=== PATIENT | male | born 2005 | race African-American/Black ===

== ENCOUNTER 2025-11-19 12:00 | Emergency (ER) | payer OTHER ==
[~2025-11-19] VITALS: Ht 172.7 cm; Wt 81.8 kg
[2025-11-19 12:02] VITALS: TEMP 98.8
[2025-11-19 12:33] LABS: PLATELET COUNT (AUTO) 418 K/uL (150-450); RED BLOOD CELL COUNT(AUTO) 4.95 MIL/uL (4.50-5.90); RED CELL DISTRIBUTION WIDTH 12.8 % (11.5-14.5); WHITE BLOOD COUNT (AUTO) 5.4 K/uL (4.5-11.0)
[2025-11-19 12:41] LABS: CALCIUM, TOTAL 8.9 mg/dL (8.8-10.5); CREATININE 1.07 mg/dL (0.60-1.30); GLOMERULAR FILTR. RATE CALC > 60 mL/min (>60); GLUCOSE,RANDOM 91 mg/dL (70-110); SODIUM SERUM 148 mmol/L (136-145); UREA NITROGEN, BLOOD 18 mg/dL (7-18)
[2025-11-19] MEDS: SODIUM CHLORIDE 0.9% 2,000 ML IV ONE (14:30)
[2025-11-19] MEDS: ONDANSETRON HCL 4 MG/2 ML VIAL IVP ONE (14:30)
[2025-11-19 14:31] LABS: COVID AG,FIA SOURCE NASAL SWAB
[2025-11-19 14:49] LABS: SARS-COV2 (COVID) ANTIGEN,FIA Negative (Negative)
[2025-11-19 14:50] LABS: INFLUENZA TYPE A NEGATIVE FOR TYPE A (NEGATIVE); INFLUENZA TYPE B NEGATIVE FOR TYPE B (NEGATIVE)
[2025-11-19 16:00] LABS: APPEARANCE,URINE CLEAR (CLEAR); GLUCOSE, URINE (UA) NEGATIVE (NEGATIVE); LEUKOCYTE ESTERASE ,URINE NEGATIVE (NEGATIVE); NITRATE,URINE NEGATIVE (NEGATIVE); OCCULT BLOOD,URINE NEGATIVE (NEGATIVE); SPECIFIC GRAVITIY, URINE 1.026 (1.003-1.030)
[2025-11-19 16:28] VITALS: BP 119/70; PULSE 64; RESP 16; O2SAT 99
== END 2025-11-19 16:42 | disposition home or self-care (01) ==
LOC: EMS 12:00
DX: J20.9 Acute bronchitis, unspecified (principal); J06.9 Acute upper respiratory infection, unspecified; K59.00 Constipation, unspecified; F17.210 Nicotine dependence, cigarettes, uncomplicated; Z20.822 Contact with and (suspected) exposure to COVID-19
CPT/HCPCS: 99283; 96374; 87426; 80048; 81003; 85025; 87804; 36415; J2405; J7030